=== PATIENT | male | born 1990 | race Caucasian/White ===

== ENCOUNTER 2018-05-29 15:24 | Emergency (ER) | payer OTHER ==
[2018-05-29] MEDS: LEVETIRACETAM 1000 MG (PMX) 100 ML IVPB (16:14)
== END 2018-05-29 18:15 | disposition home or self-care (01) ==
LOC: E/R 15:24
DX: G40.909 Epilepsy, unspecified, not intractable, without status epilepticus (principal); R40.2142 Coma scale, eyes open, spontaneous, at arrival to emergency department; R40.2362 Coma scale, best motor response, obeys commands, at arrival to emergency department; R40.2252 Coma scale, best verbal response, oriented, at arrival to emergency department
CPT/HCPCS: 96374; 99284-25